=== PATIENT | male | born 1985 ===

== ENCOUNTER 2022-05-09 13:35 | Inpatient (IN) | payer MEDICARE, MEDICAID ==
[2022-05-09] MEDS ORDERED: ACETAMINOPHEN TAB 325 MG TAB PO PRN (13:46)
[2022-05-09] MEDS ORDERED: LORazepam 1 MG TAB PO PRN (13:46)
[2022-05-09] MEDS ORDERED: HALOPERIDOL LACTATE 5 MG/ML 1 ML VIAL IM PRN (13:46)
[2022-05-09] MEDS ORDERED: MAG HYDROX/AL HYDROX/SIMETH 355 ML BOTTLE PO PRN (13:46)
[2022-05-09] MEDS ORDERED: MAGNESIUM HYDROXIDE 2,400 MG/10 ML CUP PO PRN (13:46)
[2022-05-09] MEDS ORDERED: LORazepam 2 MG/ML INJ IM PRN (13:48)
[2022-05-09] MEDS ORDERED: haloperidoL 5 MG TAB PO PRN (13:48)
[2022-05-09] MEDS: carvediloL 12.5 MG TAB PO SCH (16:57)
[2022-05-09 19:59] LABS: Glucose,Whole Blood 145 mg/dL (70-110)
[2022-05-09] MEDS: SULFAMETHOX-TMP 800-160MG 1 EACH TAB PO SCH (20:18)
[2022-05-10 08:40] LABS: Glucose,Whole Blood 124 mg/dL (70-110)
[2022-05-10] MEDS ORDERED: SERTRALINE 100 MG TAB PO SCH (09:00)
[2022-05-10] MEDS: ARIPiprazole 10 MG TAB PO SCH (09:55)
[2022-05-10] MEDS: SULFAMETHOX-TMP 800-160MG 1 EACH TAB PO SCH ×2 (09:55→21:12)
[2022-05-10] MEDS: carvediloL 12.5 MG TAB PO SCH ×3 (09:55→21:33)
[2022-05-10] MEDS ORDERED: ARIPiprazole IM SYRINGE 400 MG (NO CHARGE) PHARMACY STOCK IM ONE (12:00)
--- NOTE | 2022-05-10 13:16 | P.HP ---
Psychiatric H&P - . H&P Date: 05/10/22 History & Physical: Allergies Allergy/AdvReac Type Severity Reaction Status Date / Time No Known Allergies Allergy Verified 05/09/22 13:45 Vital Signs Temp 97.4 F L 05/09/22 14:56 Pulse 111 H 05/09/22 16:59 Resp 16 05/09/22 14:56 BP 132/86 05/09/22 16:59 Pulse Ox 97 05/09/22 14:56 FiO2 Intake & Output 05/09/22 05/10/22 05/10/22 18:59 06:59 18:59 Weight 90.718 kg Laboratory Last Values POC Glucose (mg/dL) 124 mg/dL (70-110) H 05/10/22 08:39 POC Glu Mock Up Maker ID Janee Jackman 05/10/22 08:39 Triglycerides Cancelled 05/10/22 06:34 Cholesterol Cancelled 05/10/22 06:34 LDL Cholesterol Direct Cancelled 05/10/22 06:34 LDL Cholesterol, Calc Cancelled 05/10/22 06:34 VLDL Cholesterol, Calc Cancelled 05/10/22 06:34 HDL Cholesterol Cancelled 05/10/22 06:34 Cholesterol/HDL Ratio Cancelled 05/10/22 06:34 TSH 3.870 mIU/L (0.465-4.680) 05/10/22 06:34 05/10/22 13:15 IDENTIFYING DATA: Patient is a 36 year old male with a significant history of developmental disability and schizophrenia who presents to our hospital from [place] for acute change in behaviors over the past week. HPI: Patient presented to the hospital on 05/09/2022, brought to the emergency department from [place] under petition and certification for acute change in behaviors. The petition was filled out by the patient's case resource manager reported "Enio is soiling himself and not willing to take medications. He is acting out of character or not willing to go in for assessment. He is claiming 'I am not who you think I am.'" The patient was also noted to be incontinent. 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 This is also confirmed by a staff member at [facility]. When evaluated by this provider, the patient is minimal and conversation however is denying any suicidal or homicidal ideation, intention, and/or plan. Not reporting any auditory or visual hallucinations. He is denying any paranoia or other delusions. The patient has been adherent with his medication is not endorsing any significant side effects. He signed voluntarily onto the psychiatric unit. The patient has been noted by staff to be minimally participating in milieu and individual activities. He has not been eating much. PAST PSYCHIATRIC HISTORY: Patient has a previous diagnosis of developmental disability and schizophrenia. Information was provided by the patient's case resource manager reports that prior to his current regimen, the patient was only on a regimen of Zoloft and Klonopin. The patient has been at least one prior inpatient psychiatric hospitalization. He is currently open with [facility]. No reported previous suicide attempts. PMH: HTN , DM ALLERGIES: NO KNOWN DRUG ALLERGIES CHEMICAL DEPENDENCY HISTORY: No reported substance abuse history FAMILY PSYCHIATRIC/SUBSTANCE USE HISTORY: Unable to obtain SOCIAL HISTORY: Patient is his own guardian. He currently resides at the [facility]. 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 He is single, never , and has no children. MENTAL STATUS EXAM: General Appearance: Patient appears to be stated age is alert, directable, and attempts to cooperate. Patient appears to have slightly disheveled hygiene and grooming. Behavior: Patient displays psychomotor slowing. Speech: Patient's speech is nonspontaneous, minimal, monotone, low in volume. Mood/Affect: Patient reports their mood is "not good," affect is flat. Suicidality/Homicidality: Patient denies any suicidal or homicidal ideation. Perceptions: Patient denies any visual hallucinations and denies any auditory hallucinations Though content/process: There is no evidence of any delusional thought content and thought process is linear and goal-directed. Memory and concentration: AOX3, grossly intact for the purposes of this session. Can spell "WORLD" backwards Judgment and insight: Poor at this time STRENGTHS/WEAKNESSES: Strength is that the patient is open with services and has stable housing. Weakness is that the patient has severe mental illness and ongoing infection. INTELLECT: Below average IMPRESSIONS: Schizophrenia Major depressive disorder -Suspect that the patient is experiencing a depressive episode with symptoms of elevated anxiety, low energy, withdrawn affect, as well as regressing behaviors such as incontinence. PLAN: -Patient is admitted under voluntary status to MHU for stabilization of psychiatric symptoms and safety. Patient signed adult voluntary form and medication consent and is placed in patient's chart. -Medications : Will start patient on Abilify maintena 400 mg IM will be administered today. Continue Abilfiy 10 mg daily for mood stabilization Decrease Zoloft to 150 mg by mouth daily for depression/anxiety Start Remeron 7.5 mg by mouth at bedtime for depression/appetite stimulation -Ativan Haldol PRN for agitation/aggression -Patient was informed of the risks, benefits and side effects of the medication and patient verbally consented to taking the medications. Patient signed med consent form and was placed in chart. -Internal Medicine consult to perform medical evaluation and physical. -SW on board for discharge planning. Encourage patient to participate in groups to work on coping skills.
[2022-05-10 14:29] LABS: Glucose,Whole Blood 156 mg/dL (70-110)
[2022-05-10 17:53] LABS: Glucose,Whole Blood 88 mg/dL (70-110)
[2022-05-10] MEDS ORDERED: MIRTAZAPINE 15 MG TAB PO SCH (21:00)
--- NOTE | 2022-05-11 00:04 | P.PN ---
Progress Note - Text Progress Note Date: 05/11/22 severe developmental delay , challenging to get meaningful medical history at this time, no medical concerns per RN
[2022-05-11 07:58] LABS: Glucose,Whole Blood 85 mg/dL (70-110)
[2022-05-11] MEDS: ARIPiprazole 10 MG TAB PO SCH (08:59)
[2022-05-11] MEDS: SULFAMETHOX-TMP 800-160MG 1 EACH TAB PO SCH ×2 (08:59→20:59)
[2022-05-11] MEDS: carvediloL 12.5 MG TAB PO SCH ×2 (08:59→17:29)
[2022-05-11] MEDS: SERTRALINE 50 MG TAB PO SCH (08:59)
--- NOTE | 2022-05-11 10:19 | P.PN ---
Progress Note - Text Progress Note Date: 05/11/22 Interval History: Patient was seen resting in bed and was directable and agreeable to speak with database report writer in his room., The patient is not reporting any suicidal or homicidal ideation, intention, and/or plan. He is not reporting any auditory or visual hallucinations. He reports no paranoia or other delusions. He has been adherent with his medication and is not endorsing any significant side effects. He remains minimal and conversation and does not wish to get out of bed. He does report that he was able to get up and eat breakfast. He remains primarily isolative to himself in his room. The patient is unable to identify any acute stressors to this provider. Mental Status Exam: General Appearance: Patient appears to be stated age is alert, directable, and cooperative. Behavior: Displays psychomotor slowing. Eye contact is poor Speech: Patient's speech is nonspontaneous, minimal, monotone, low in volume. Mood/Affect: Patient reports their mood is "not good," affect is flat. Suicidality/Homicidality: Patient denies any suicidal or homicidal ideation. Perceptions: Patient denies any visual hallucinations and denies any auditory hallucinations Though content/process: There is no evidence of any delusional thought content and thought process is linear and goal-directed. Memory and concentration: AOX3, grossly intact for the purposes of this session. Judgment and insight: Poor at this time Vital Signs Temp 97.5 F L 05/11/22 09:04 Pulse 95 05/11/22 09:04 Resp 16 05/11/22 06:37 BP 119/68 05/11/22 09:04 Pulse Ox 99 05/11/22 06:37 FiO2 Allergies Allergy/AdvReac Type Severity Reaction Status Date / Time No Known Allergies Allergy Verified 05/09/22 13:45 Assessment Schizophrenia Major depressive disorder Plan: -Patient continues to meet criteria for inpatient psychiatric admission for symptom stabilization and safety. Patient has signed adult voluntary form and medication consent and was placed in patient's chart. -Medications: -Medications : Will start patient on Abilify maintena 400 mg IM will be administered today. Continue Abilfiy 10 mg daily for mood stabilization Continue Zoloft 150 mg by mouth daily for depression/anxiety Increase Remeron to 15 mg by mouth at bedtime for depression/appetite stimulation -When necessary Ativan and Haldol for agitation/aggression. -NRT - nicotine patch -SW on board for discharge planning. Encouraged the patient to participate in milieu.
[2022-05-11 15:29] LABS: Chol/HDL Ratio 7.43 Ratio; LDL Cholesterol,Calculated 147.6 mg/dL (0.0-131.0)
[2022-05-11 17:41] LABS: Glucose,Whole Blood 84 mg/dL (70-110)
[2022-05-11 20:03] LABS: Glucose,Whole Blood 142 mg/dL (70-110)
[2022-05-11] MEDS: MIRTAZAPINE 15 MG TAB PO SCH (20:59)
[2022-05-12] MEDS: SULFAMETHOX-TMP 800-160MG 1 EACH TAB PO SCH ×2 (08:41→20:23)
[2022-05-12] MEDS: carvediloL 12.5 MG TAB PO SCH ×2 (08:42→17:35)
[2022-05-12] MEDS: ARIPiprazole 10 MG TAB PO SCH (08:42)
[2022-05-12] MEDS: SERTRALINE 50 MG TAB PO SCH (09:08)
--- NOTE | 2022-05-12 10:27 | P.PN ---
Progress Note - Text Progress Note Date: 05/12/22 Interval History: Patient was seen resting in bed and was directable and agreeable to speak with policy writer sales in his room. The patient is currently denying any suicidal or homicidal ideation, intention, and/or plan. He is not reporting any auditory or visual hallucinations. The patient was discovered in his room with 10 mg of Abilify in pill form next to him. When inquired about, the patient reports that he has not been taking his oral medications. When asked why not, the patient is unable to provide any clear answer other than "I do not want to." He expresses no other concerns to this provider. Mental Status Exam: General Appearance: Patient appears to be stated age is alert, directable, and cooperative. Behavior: Displays psychomotor slowing. Eye contact is poor Speech: Patient's speech is nonspontaneous, minimal, monotone, low in volume. Mood/Affect: Patient reports their mood is "not good," affect is flat. Suicidality/Homicidality: Patient denies any suicidal or homicidal ideation. Perceptions: Patient denies any visual hallucinations and denies any auditory hallucinations Though content/process: There is no evidence of any delusional thought content and thought process is linear and goal-directed. Memory and concentration: AOX3, grossly intact for the purposes of this session. Judgment and insight: Poor at this time Vital Signs Temp 97.7 F 05/12/22 06:51 Pulse 88 05/12/22 06:51 Resp 16 05/12/22 06:51 BP 121/79 05/12/22 06:51 Pulse Ox 99 05/11/22 06:37 FiO2 Laboratory Results - Last 24 Hours 05/11/22 05/11/22 05/11/22 08:07 08:07 17:38 POC Glucose (mg/dL) 84 POC Glu Head Lineman ID Chana Traore [address] Glu mg/dL 151 Hemoglobin A1c 6.9 H Triglycerides 227.00 H Cholesterol 223.00 H LDL Cholesterol, Calc 147.6 H VLDL Cholesterol, Calc 45.40 H HDL Cholesterol 30.00 L Cholesterol/HDL Ratio 7.43 05/11/22 20:01 POC Glucose (mg/dL) 142 H POC Glu Head Lineman ID Ameena Garzon [address] Glu mg/dL Hemoglobin A1c Triglycerides Cholesterol LDL Cholesterol, Calc VLDL Cholesterol, Calc HDL Cholesterol Cholesterol/HDL Ratio Assessment Schizophrenia Major depressive disorder Plan: -Patient continues to meet criteria for inpatient psychiatric admission for symptom stabilization and safety. Patient has signed adult voluntary form and medication consent and was placed in patient's chart. -Medications: -Medications : The patient has been nonadherent with his medications. Abilify maintena 400 mg IM was administered on 05/10/2022. Continue Abilfiy 10 mg daily for mood stabilization Discontinue Zoloft and start Prozac 30 mg oral solution daily. Continue Remeron 15 mg at bedtime for depression/appetite stimulation -When necessary Ativan and Haldol for agitation/aggression. -NRT - nicotine patch -SW on board for discharge planning. Encouraged the patient to participate in milieu.
[2022-05-12 20:06] LABS: Glucose,Whole Blood 83 mg/dL (70-110)
[2022-05-12] MEDS: MIRTAZAPINE 15 MG TAB PO SCH (20:23)
[2022-05-13 08:29] LABS: Glucose,Whole Blood 107 mg/dL (70-110)
[2022-05-13] MEDS: FLUoxetine ORAL SOLN 20 MG/5 ML CUP PO SCH (08:34)
[2022-05-13] MEDS: SULFAMETHOX-TMP 800-160MG 1 EACH TAB PO SCH ×2 (08:34→19:44)
[2022-05-13] MEDS: carvediloL 12.5 MG TAB PO SCH ×2 (08:34→17:20)
[2022-05-13] MEDS: ARIPiprazole 10 MG TAB PO SCH (08:35)
[2022-05-13 13:14] LABS: Glucose,Whole Blood 100 mg/dL (70-110)
[2022-05-13 17:43] LABS: Glucose,Whole Blood 103 mg/dL (70-110)
--- NOTE | 2022-05-13 18:30 | P.PN ---
Progress Note - Text Progress Note Date: 05/13/22 Interval history: Patient was seen isolating to his room and resting in bed. He was agreeable to speak with specification writer but was passively engaged in assessment with concrete thoughts. He appears disheveled, withdrawn, and appears to minimize his symptoms. He reports his mood is "alright" and denies any concerns. At this time, patient denies any suicidal or homicidal ideation, intent or plan. Denies any auditory or visual hallucinations. Patient denies any side effects from the medications and has been compliant with meds. He did not attend group today. Mental status exam: General Appearance: Patient appears to be stated age, appears disheveled, laying in bed with hospital gown Behavior: No agitated behavior. He is withdrawn and isolative, is passively engaged in assessment. Speech: Patient's speech is fluent and non-pressured. Mood/Affect: Mood is improving mildly, affect is congruent and blunted. Suicidality/Homicidality: Patient denies having any suicidal or homicidal ideation intent or plan. Perceptions: Patient denies any auditory or visual hallucinations. Though content/process: There is no evidence of any delusional thought content. Thought process is concrete with brief/minimal responses. Memory and concentration: AOX3, grossly intact for the purposes of this session Judgment and insight: improving mildly Assessment/Plan: Continue with current diagnosis. Patient continues to meet criteria for inpatient psychiatric admission for symptom stabilization and safety. Patient will be maintained on current psychotropic medication regimen. He was started on Prozac oral solution 30 mg daily starting this morning. Monitor for medication compliance and for any psychotropic medication side effects. Will continue to monitor ongoing response to treatment. Encouraged participation in milieu.
[2022-05-13 19:43] LABS: Glucose,Whole Blood 122 mg/dL (70-110)
[2022-05-13] MEDS: MIRTAZAPINE 15 MG TAB PO SCH (19:44)
--- NOTE | 2022-05-14 00:07 | P.CONS ---
History of Present Illness - Reason for Consult Consult date: 05/14/22 - History of Present Illness The patient is a 36-year-old male with a PMH of type II DM, hypertension, developmental delay and schizophrenia who was transferred from [facility] where the patient had presented for strange behavior. The patient was admitted to the mental health unit where he was seen and evaluated. He reported having long-standing history of auditory hallucinations. He denied any additional complaints at the time of interview. He denied experiencing chest discomfort, shortness of breath, fever, chills, cough, nausea, vomiting, abdominal pain, diarrhea. He denied using tobacco, illicit substances, or alcohol. Review of systems: Pertinent positives and negatives as discussed in HPI, a complete review of systems was performed and all other systems are negative. Physical examination: General: non toxic, no distress, appears at stated age, overweight Derm: no unusual rashes/lesions, no unusual ecchymoses, warm, dry Head: atraumatic, normocephalic, symmetric Eyes: EOMI, no lid lag, anicteric sclera ENT: Nose and ears atraumatic, no thrush, no pharyngeal erythema Neck: trachea midline, supple Mouth: no lip lesion, mucus membranes moist Cardiovascular: S1S2 reg, no murmur, no edema Lungs: CTA bilateral, no rhonchi, no rales , no accessory muscle use Abdominal: soft, nontender to palpation, no guarding Ext: no gross muscle atrophy, no contractures, Neuro: No gross focal neuro deficits noted Psych: Alert, oriented, appropriate affect Assessment/plan Type II DM -Although patient has insulin in his his home medication list, the patient's blood glucose levels have been within normal limits without use of insulin -Continue to monitor at this time Psychosis -As per psychiatry Thank you for allowing us to participate in the care of this patient. We will follow peripherally. Do not hesitate to contact us with questions. Someone can be reached from the [facility] hospitalist group at all hours of the day at [phone]. Past Medical History - Past Family History Father Family Medical History: Unable to Obtain (Unable to recall as patient has developmental delay) Medications and Allergies Home Medications Medication Instructions Recorded Confirmed Type ARIPiprazole 10 mg PO DAILY 05/09/22 05/09/22 History ARIPiprazole IM SYRINGE [Abilify 400 mg IM Q28D 05/09/22 05/09/22 History Maintena Syringe] Insulin Aspart [NovoLOG Flexpen] 15 units SQ AC-TID 05/09/22 05/09/22 History Insulin Aspart [NovoLOG Flexpen] See Protocol SQ DIRECTED 05/09/22 05/09/22 History Insulin Detemir [Levemir Flextouch 20 units SQ BID 05/09/22 05/09/22 History Pen] Sertraline [Zoloft] 200 mg PO DAILY 05/09/22 05/09/22 History carvediloL 25 mg PO BID 05/09/22 05/09/22 History Allergies Allergy/AdvReac Type Severity Reaction Status Date / Time No Known Allergies Allergy Verified 05/09/22 13:45 Physical Exam Vitals: Vital Signs Temp Pulse Resp BP Pulse Ox 05/13/22 17:15 92 109/65 05/13/22 08:38 98.2 F 95 16 112/68 95 Intake and Output 05/13/22 05/13/22 05/14/22 14:59 22:59 06:59 Intake Total 1120 120 Balance 1120 120 Intake: Oral 1120 120 Results Labs: Abnormal Lab Results - Last 24 Hours (Table) 05/13/22 Range/Units 19:40 POC Glucose (mg/dL) 122 H (70-110) mg/dL
[2022-05-14 07:46] LABS: Glucose,Whole Blood 106 mg/dL (70-110)
[2022-05-14] MEDS: ARIPiprazole 10 MG TAB PO SCH (08:04)
[2022-05-14] MEDS: carvediloL 12.5 MG TAB PO SCH ×2 (08:04→17:28)
[2022-05-14] MEDS: SULFAMETHOX-TMP 800-160MG 1 EACH TAB PO SCH ×2 (08:04→20:38)
[2022-05-14] MEDS: FLUoxetine ORAL SOLN 20 MG/5 ML CUP PO SCH (08:06)
[2022-05-14 12:48] LABS: Glucose,Whole Blood 94 mg/dL (70-110)
--- NOTE | 2022-05-14 15:03 | P.PN ---
Progress Note - Text Progress Note Date: 05/14/22 Interval history: Patient was seen isolating to his room again today and resting in bed. He was agreeable to speak with mortgage loan underwriter but was passively engaged in assessment with concrete thoughts. He appears disheveled, withdrawn, and appears to minimize his symptoms. He reports his mood is "fine" and denies any concerns, but objectively he appears depressed, is malodorous and disheveled. At this time, patient denies any suicidal or homicidal ideation, intent or plan. Denies any auditory or visual hallucinations. Patient denies any side effects from the medications and has been compliant with meds. He did not attend groups again today and continues to isolate to his room except for meals. Mental status exam: General Appearance: Patient appears to be stated age, appears disheveled, malodorous, laying in bed with hospital gown Behavior: No agitated behavior. He is withdrawn and isolative, is passively engaged in assessment. Speech: Patient's speech is fluent and non-pressured. Mood/Affect: Mood is "fine", affect is depressed and blunted. Suicidality/Homicidality: Patient denies having any suicidal or homicidal ideation intent or plan. Perceptions: Patient denies any auditory or visual hallucinations. Though content/process: There is no evidence of any delusional thought content. Thought process is concrete with brief/minimal responses. Memory and concentration: AOX3, grossly intact for the purposes of this session Judgment and insight: improving mildly Assessment/Plan: Continue with current diagnosis. Patient continues to meet criteria for inpatient psychiatric admission for symptom stabilization and safety. Patient will be maintained on current psychotropic medication regimen. Increase Prozac oral solution to 40 mg daily starting tomorrow morning for depression. Monitor for medication compliance and for any psychotropic medication side effec ts. Will continue to monitor ongoing response to treatment. Encouraged participation in milieu.
[2022-05-14 17:40] LABS: Glucose,Whole Blood 85 mg/dL (70-110)
[2022-05-14 20:09] LABS: Glucose,Whole Blood 124 mg/dL (70-110)
[2022-05-14] MEDS: MIRTAZAPINE 15 MG TAB PO SCH (20:38)
[2022-05-15 07:01] VITALS: RESP 14
[2022-05-15 07:56] LABS: Glucose,Whole Blood 91 mg/dL (70-110)
[2022-05-15] MEDS: FLUoxetine ORAL SOLN 20 MG/5 ML CUP PO SCH (08:39)
[2022-05-15] MEDS: SULFAMETHOX-TMP 800-160MG 1 EACH TAB PO SCH ×2 (08:39→20:48)
[2022-05-15] MEDS: carvediloL 12.5 MG TAB PO SCH ×2 (08:39→17:30)
[2022-05-15] MEDS: ARIPiprazole 10 MG TAB PO SCH (08:39)
--- NOTE | 2022-05-15 10:11 | P.PN ---
Progress Note - Text Progress Note Date: 05/15/22 Interval history: Patient was seen isolating to his room again today and resting in bed. Patient reports that he is feeling good. He is currently denying any suicidal or homicidal ideation, intention, and/or plan. He is not reporting any auditory or visual hallucinations. He denies any paranoia or other delusions. He is noted to be more spontaneous today. He states that he is adherent with his medications and is not reporting any significant side effects. When discussing his favorite books, the patient is able to comment that his favorite series as the [employer] series. He does report that he has been eating his meals and states that he has been sleeping well. He reports that no one typically helps him shower and that he showered yesterday. He denies any medical issues or concerns. Mental status exam: General Appearance: Patient appears to be stated age, appears disheveled, laying in bed with hospital gown Behavior: No agitated behavior. He is withdrawn and passively engaged in the assessment. Speech: Patient's speech is fluent and non-pressured. Nonspontaneous but more verbal today. Mood/Affect: Mood is "fine", affect is blunted but increased range today. Suicidality/Homicidality: Patient denies having any suicidal or homicidal ideation intent or plan. Perceptions: Patient denies any auditory or visual hallucinations. Though content/process: There is no evidence of any delusional thought content. Thought process is concrete with brief/minimal responses. Memory and concentration: AOX3, grossly intact for the purposes of this session Judgment and insight: improving mildly Vital Signs Temp 98.2 F 05/15/22 08:44 Pulse 83 05/15/22 08:44 Resp 14 05/15/22 06:50 BP 124/59 05/15/22 08:44 Pulse Ox 95 05/13/22 08:38 FiO2 Intake & Output 05/14/22 05/15/22 05/15/22 18:59 06:59 18:59 Intake Total 840 Balance 840 Intake: Oral 840 Laboratory Results - Last 24 Hours 05/14/22 05/14/22 05/14/22 12:45 17:39 20:05 POC Glucose (mg/dL) 94 85 124 H POC Glu Vendor Management Associate Mary Butler Ellie Keyworth, Toni 05/15/22 07:54 POC Glucose (mg/dL) 91 POC Glu Vendor Management Associate ID Chana Traore Assessment Schizophrenia Major depressive disorder Plan: -Patient continues to meet criteria for inpatient psychiatric admission for symptom stabilization and safety. Patient has signed adult voluntary form and medication consent and was placed in patient's chart. -Medications: -Medications : Abilify maintena 400 mg IM was administered on 05/10/2022. Continue Abilfiy 10 mg daily for mood stabilization Continue Prozac oral solution 40 mg daily for depression Continue Remeron 15 mg at bedtime for depression/appetite stimulation -When necessary Ativan and Haldol for agitation/aggression. -NRT - nicotine patch -SW on board for discharge planning. Encouraged the patient to participate in milieu.
[2022-05-15 13:04] LABS: Glucose,Whole Blood 94 mg/dL (70-110)
[2022-05-15] MEDS: MIRTAZAPINE 15 MG TAB PO SCH (20:48)
[2022-05-16 06:52] VITALS: BP 103/57; PULSE 72; TEMP 97.6
[2022-05-16 07:50] LABS: Glucose,Whole Blood 93 mg/dL (70-110)
[2022-05-16] MEDS: carvediloL 12.5 MG TAB PO SCH (08:47)
[2022-05-16] MEDS: SULFAMETHOX-TMP 800-160MG 1 EACH TAB PO SCH (08:47)
[2022-05-16] MEDS: FLUoxetine ORAL SOLN 20 MG/5 ML CUP PO SCH (08:47)
[2022-05-16] MEDS: ARIPiprazole 10 MG TAB PO SCH (08:48)
[2022-05-16 12:50] LABS: Glucose,Whole Blood 99 mg/dL (70-110)
--- NOTE | 2022-05-16 13:05 | P.DS ---
Providers Date of admission: 05/09/22 14:38 Expected date of discharge: 05/16/22 Attending physician: Jian Andres MD Consults: 05/09/22 13:46 Consult Physician Routine Consulting Provider: May Henry Consult Reason/Comments: H&P and medical Do you want consulting provider notified?: Yes Primary care physician: Stated None - Discharge Diagnosis(es) (1) Major depressive disorder Current Visit: Yes Status: Acute Priority: High (2) Schizophrenia Current Visit: Yes Status: Acute Priority: Medium (3) Intellectual disability Current Visit: Yes Status: Chronic Priority: Medium Hospital Course: Admission HPI: Patient is a 36 year old male with a significant history of developmental disability and schizophrenia who presents to our hospital from [place] ED for acute change in behaviors over the past week. Patient presented to the hospital on 05/09/2022, brought to the emergency department from [place] ED under petition and certification for acute change in behaviors. The petition was filled out by the patient's case planner reported "Enio is soiling himself and not willing to take medications. He is acting out of character or not willing to go in for assessment. He is claiming 'I am not who you think I am.'" The patient was also noted to be incontinent. 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 This is also confirmed by a staff member at [facility]. When evaluated by this provider, the patient is minimal and conversation however is denying any suicidal or homicidal ideation, intention, and/or plan. Not reporting any auditory or visual hallucinations. He is denying any paranoia or other delusions. The patient has been adherent with his medication is not endorsing any significant side effects. He signed voluntarily onto the psychiatric unit. The patient has been noted by staff to be minimally participating in milieu and individual activities. He has not been eating much. Patient has a previous diagnosis of developmental disability and schizophrenia. Information was provided by the patient's case planner reports that prior to his current regimen, the patient was only on a regimen of Zoloft and Klonopin. The patient has been at least one prior inpatient psychiatric hospitalization. He is currently open with [facility]. No reported previous suicide attempts. Hospital course: Upon admission to the unit patient was initially presenting as withdrawn, disheveled, and minimal conversation. Patient was however directable and agreeable to commence treatment. Patient got along well with other patients on the unit and followed unit protocol. Patient was compliant with the medications and denied any side effects throughout hospital course. Patient was started on his Abilify maintena and remeron was added to his regimen. Zoloft was continued however, over the course of the hospitals addition, the patient displayed minimal improvement with this regimen. It was later determined that the patient was nonadherent with his medications and therefore he was switched from Zoloft to liquid Prozac. On this regimen, the patient displayed significant improvement in regards to his spontaneity and his interactions with staff and peers. He became more future and goal oriented and was more spontaneous and taking care of his hygiene and grooming. The patient also developed a better appetite and was able to have full conversations with this provider as compared to before. On the day of discharge, the patient is not reporting any suicidal or homicidal ideation, intention, and/or plan. He is not reporting any auditory or visual hallucinations. He is denying any paranoia or other delusions. He has been adherent with his medication is not reporting any significant side effects. He denies any access to firearms or other weapons. He remains future and goal oriented. The patient was counseled length and the importance of medication adherence and appropriate outpatient follow-up. Furthermore, the patient was counseled on abstaining from all substances including alcohol and marijuana. Prior to discharge, a meeting was arranged by social work case manager to answer any questions and ensure safety. He reports no medical issues or concerns. He denies any chest pain, SOB, or palpitations. Mental status exam: General Appearance: Patient appears to be stated age is alert, pleasant, and cooperative. Patient is in no acute distress and has improved hygiene and grooming Behavior: Patient is calmly seated without any agitated behavior. Speech: Patient's speech is fluent and nonpressured. Mood/Affect: Patient reports their mood is "doing okay", affect is congruent and constricted however increased range compared to before Suicidality/Homicidality: Patient denies having any suicidal or homicidal ideation intent or plan. Perceptions: Patient denies any auditory or visual hallucinations. Though content/process: There is no evidence of any delusional thought content and thought process is linear and goal-directed. Patient is future oriented Memory and concentration: AOX3, grossly intact for the purposes of this session. Can spell "WORLD" backwards correctly. Judgment and insight: Improved with guarded prognosis Impression: Schizophrenia Major depressive disorder Plan: -Continue with discharge today as patient has improved and stabilized psychiatrically and is not currently an imminent threat to himself and/or others. Patient will remain at chronically elevated risk due to the severity of his mental illness -Continue medications: Continue on Abilify 10 mg by mouth for 15 days Abilify maintena 400 mg IM was administered on 05/10/2022. Patient receives IM every 28D. Remeron 15 mg by mouth at bedtime for depression Prozac 40 mg by mouth at bedtime for depression/anxiety -Patient was counseled on the need for medication compliance and appropriate follow-up at mental health and also primary care for medical issues. Patient verbalized understanding and agreed. -Social work to arrange for and conduct family meeting to ensure safety upon discharge and answer any questions/concerns. Social work also to arrange for patients follow up appointments with [facility] for psychiatric care along with follow up with primary care provider. -Patient counseled on abstaining from recreational drugs and marijuana and alcohol. Was informed/educated on the adverse effects on their physical and mental health. Patient verbally agreed and understood. -Patient was instructed to return to the hospital or seek immediate medical care if their psychiatric or medical symptoms do worsen or reoccur. -Psychoeducation and supportive therapy provided to patient. Risks and benefits of pharmacological treatment versus the risks and benefits of nontreatment weight and discussed. Informed consent discussion held. Common side effects of psychotropics discussed such as, but not limited to headache, GI disturbance, sexual dysfunction, movement disorders, sedation, and orthostatic hypotension. Life threatening and blackbox warnings of prescribed medications also discussed. Potential risks of operating a vehicle or heavy machinery discussed with patient at length. Advised on importance of compliance and a reliable and responsible manner. Patient advised to review FDA consumer labeling of all medications prior to taking. Patient verbalized understanding of potential risks, and agrees with current treatment plan. Patient advised to medically c ontact physician/emergency personnel if any acute changes in condition occur. Vital Signs Temp 97.6 F 05/16/22 06:51 Pulse 72 05/16/22 06:51 Resp 14 05/16/22 06:51 BP 103/57 05/16/22 06:51 Pulse Ox 95 05/13/22 08:38 FiO2 Laboratory Results POC Glucose (mg/dL) 99 mg/dL (70-110) 05/16/22 12:47 POC Glu [employer] Chana Meyer 05/16/22 12:[address] Glu mg/dL 151 05/11/22 08:07 Hemoglobin A1c 6.9 % (0.0-6.0) H 05/11/22 08:07 Triglycerides 227.00 mg/dL (0.00-149.00) H 05/11/22 08:07 Cholesterol 223.00 mg/dL (0.00-200.00) H 05/11/22 08:07 LDL Cholesterol Direct Cancelled 05/10/22 06:34 LDL Cholesterol, Calc 147.6 mg/dL (0.0-131.0) H 05/11/22 08:07 VLDL Cholesterol, Calc 45.40 mg/dL (5.00-40.00) H 05/11/22 08:07 HDL Cholesterol 30.00 mg/dL (40.00-60.00) L 05/11/22 08:07 Cholesterol/HDL Ratio 7.43 Ratio 05/11/22 08:07 TSH 3.870 mIU/L (0.465-4.680) 05/10/22 06:34 Allergies Allergy/AdvReac Type Severity Reaction Status Date / Time No Known Allergies Allergy Verified 05/09/22 13:45 Patient Condition at Discharge: Stable Plan - Discharge Summary New Discharge Prescriptions: New ARIPiprazole [Abilify] 10 mg PO DAILY 15 Days tab FLUoxetine ORAL SOLN [PROzac ORAL SOLN] 40 mg PO DAILY 30 Days ml Mirtazapine [Remeron] 15 mg PO HS 30 Days tab Continue Insulin Detemir [Levemir Flextouch Pen] 20 units SQ BID ARIPiprazole IM SYRINGE [Abilify Maintena Syringe] 400 mg IM Q28D #0 Insulin Aspart [NovoLOG Flexpen] 15 units SQ AC-TID carvediloL 25 mg PO BID Insulin Aspart [NovoLOG Flexpen] See Protocol SQ DIRECTED Discontinued ARIPiprazole 10 mg PO DAILY Sertraline [Zoloft] 200 mg PO DAILY Discharge Medication List Insulin Aspart [NovoLOG Flexpen] 15 units SQ AC-TID 05/09/22 [History] Insulin Aspart [NovoLOG Flexpen] See Protocol SQ DIRECTED 05/09/22 [History] Insulin Detemir [Levemir Flextouch Pen] 20 units SQ BID 05/09/22 [History] carvediloL 25 mg PO BID 05/09/22 [History] ARIPiprazole IM SYRINGE [Abilify Maintena Syringe] 400 mg IM Q28D #0 05/16/22 [Rx] ARIPiprazole [Abilify] 10 mg PO DAILY 15 Days tab 05/16/22 [Rx] FLUoxetine ORAL SOLN [PROzac ORAL SOLN] 40 mg PO DAILY 30 Days ml 05/16/22 [Rx] Mirtazapine [Remeron] 15 mg PO HS 30 Days tab 05/16/22 [Rx] Follow up Appointment(s)/Referral(s): [facility] [Outside] - 05/18/22 10:00 am (05-18-22 at 10am at [facility]/ 06-13-22 at 5:30pm Dr. Andrade at [facility]) [facility] [NON-STAFF] - 1 Week Patient Instructions/Handouts: Depression (DC), Schizophrenia (DC) Activity/Diet/Wound Care/Special Instructions: Avoid the use of street drugs and alcohol. Take all prescriptions as prescribed. When you are in need of refills on your medications, please contact your medical provider and/or outpatient psychiatrist to have this done. Please go to scheduled outpatient appointment for aftercare treatment. If symptoms return or become worse, call the crisis line at and/or go to the nearest emergency room for evaluation Discharge Disposition: HOME SELF-CARE
== END 2022-05-16 18:10 | disposition home or self-care (01) | DRG 881 ==
LOC: 3MHU 14:38
PROVIDERS: ADMIT Psychiatry & Neurology Psychiatry; ATTEND Psychiatry & Neurology Psychiatry
DX: F32.9 Major depressive disorder, single episode, unspecified (principal); E11.9 Type 2 diabetes mellitus without complications; F20.9 Schizophrenia, unspecified; I10 Essential (primary) hypertension; F79 Unspecified intellectual disabilities; E66.3 Overweight; R62.50 Unspecified lack of expected normal physiological development in childhood; R32 Unspecified urinary incontinence; Z68.28 Body mass index [BMI] 28.0-28.9, adult; Z79.899 Other long term (current) drug therapy; Z79.4 Long term (current) use of insulin
CPT/HCPCS: 80061; 83036; 84443

== ENCOUNTER 2022-05-24 03:04 | Inpatient (IN) | payer MEDICARE, MEDICAID ==
[2022-05-24] MEDS ORDERED: LORazepam 1 MG TAB PO PRN (03:33)
[2022-05-24] MEDS ORDERED: MAGNESIUM HYDROXIDE 2,400 MG/10 ML CUP PO PRN (03:33)
[2022-05-24] MEDS ORDERED: ACETAMINOPHEN TAB 325 MG TAB PO PRN (03:33)
[2022-05-24] MEDS ORDERED: HALOPERIDOL LACTATE 5 MG/ML 1 ML VIAL IM PRN (03:33)
[2022-05-24] MEDS ORDERED: MAG HYDROX/AL HYDROX/SIMETH 355 ML BOTTLE PO PRN (03:33)
[2022-05-24] MEDS ORDERED: haloperidoL 5 MG TAB PO PRN (03:38)
[2022-05-24] MEDS ORDERED: LORazepam 2 MG/ML INJ IM PRN (03:38)
[2022-05-24] MEDS ORDERED: FLUoxetine HCL 20 MG CAP PO SCH (09:00)
[2022-05-24] MEDS: ARIPiprazole 10 MG TAB PO SCH (09:41)
--- NOTE | 2022-05-24 11:17 | P.HP ---
Psychiatric H&P - . H&P Date: 05/24/22 History & Physical: Allergies Allergy/AdvReac Type Severity Reaction Status Date / Time No Known Allergies Allergy Verified 05/24/22 10:21 Vital Signs Temp 97.7 F 05/24/22 09:30 Pulse 84 05/24/22 09:30 Resp 18 05/24/22 09:30 BP 127/75 05/24/22 09:30 Pulse Ox 97 05/24/22 09:30 FiO2 Intake & Output 05/23/22 05/24/22 05/24/22 18:59 06:59 18:59 Weight 131.542 kg 88.5 kg 05/24/22 11:17 IDENTIFYING DATA: Patient is a 36-year-old male who presented to our hospital from [place] [facility] for increased apathy, rigidity, and catatonic behavior. HPI: Patient presented to the hospital on 05/24/2022, transferred from [facility] for increased apathy, rigidity, and catatonic behavior. The patient was assessed by [facility] on 05/23/22 and was recommended for psychiatric inpatient hospitalization. As for EPS nurse, the [facility] home was contacted and reported that the patient requested to return to the hospital a few days after being discharged from our unit on 05/16/2022.The patient was also reported to be treated at [facility] for catatonia. The patient presented with increased apathy and endorsed suicidal ideation and some bizarre delusional thoughts. He was subsequently admitted to our psychiatric unit. Upon evaluation on the unit, the patient is a limited historian. He is minimal in conversation but reports that he has been feeling depressed. He does not endorse any auditory or visual hallucinations. He reports no paranoia or other delusions to this provider. He does report low appetite and difficulty addressing his hygiene and grooming however attempts to illicit a more thorough response is met with one word answers. The patient is however agreeable to admission and medication adjustments. During his last admission, this provider contacted [facility] and they reported that the patient is highly functional at baseline. 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 PAST PSYCHIATRIC HISTORY: raquel has a previous diagnosis of developmental disability and schizophrenia. The patient was only on a regimen of Zoloft and Klonopin prior to initiating treatment on abilify maintena. He received abilify maintena 400 mg IM on 05/10/2022. The patient was most recently admitted to our unit in April 2022 and was discharged 2 weeks prior to this admission. He was transitioned to prozac and remeron from zoloft. He is currently open with [facility]. No reported previous suicide attempts. PMH: Hypertension, Diabetes Mellitus ALLERGIES: NKDA CHEMICAL DEPENDENCY HISTORY: Patient reports no alcohol, tobacco, marijuana, or illicit drug use. FAMILY PSYCHIATRIC/SUBSTANCE USE HISTORY: Unable to obtain. SOCIAL HISTORY: Patient is his own guardian. He currently resides at the [facility] home. 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 He is single, never , and has no children. MENTAL STATUS EXAM: General Appearance: Patient appears to be stated age is alert, directable, and attempts to cooperate. Patient appears to have poor hygiene and grooming. Behavior: Patient is lying down in bed with fair eye contact. Psychomotor retardation is evident. Patient blinks frequently. Speech: Patient's speech is nonspontaneous. Low volume, one-word replies. Mood/Affect: Patient reports their mood is depressed, affect is congruent and flat. Suicidality/Homicidality: Patient denies any suicidal or homicidal ideation. Perceptions: Patient denies any visual hallucinations and denies any auditory hallucinations Though content/process: There is no evidence of any delusional thought content and thought process is linear and goal-directed. Memory and concentration: AOX3, grossly intact for the purposes of this session. Judgment and insight: Fair STRENGTHS/WEAKNESSES: Strength is that the patient is open with services and has stable housing. Weakness is that the patient has severe mental illness and developmental delay. INTELLECT: Below average IMPRESSIONS: Major depressive disorder, recurrent, severe, with psychotic features. PLAN: -Patient is admitted under voluntary status to MHU for stabilization of psychiatric symptoms and safety. Patient signed adult voluntary form and medication consent and is placed in patient's chart. -Medications : Will start patient on Abilify 10 mg daily for mood augmentation. Abilify maintena 400 mg IM was last administered on 05/10/2022. Prozac 40 mg daily for depression Increase Remeron to 30 mg at bedtime for depression -Ativan and Haldol PRN for agitation/aggression -Patient was informed of the risks, benefits and side effects of the medication and patient verbally consented to taking the medications. Patient verbally agreed to medications. -Internal Medicine consult to perform medical evaluation and physical. -SW on board for discharge planning. Encourage patient to participate in groups to work on coping skills.
[2022-05-24] MEDS ORDERED: DEXTROSE 50% SYRINGE 50 ML IVP PRN ×2 (16:03)
--- NOTE | 2022-05-24 16:58 | P.HPMEDMHU ---
History of Present Illness H&P Date: 05/24/22 Chief Complaint: Transferred for catatonic behavior Patient is a 36-year-old male with a past medical history of diabetes, hypertension, schizophrenia, developmental delay who was transferred from [facility] for catatonic behavior. He is admitted to the BHU unit. Patient is a poor historian. Patient stated that he does not feel good. He is not able to elaborate more about why he does not feel good. Review of Systems Unable to [id number] ROS reviewed and are negative except as noted in HPI since patient is a poor historian Past Medical History Past Medical History: Hypertension History of Any Multi-Drug Resistant Organisms: None Reported Past Anesthesia/Blood Transfusion Reactions: No Reported Reaction Smoking Status: Never smoker - Past Family History Father Family Medical History: Unable to Obtain Medications and Allergies Home Medications Medication Instructions Recorded Confirmed Type Insulin Aspart [NovoLOG Flexpen] 15 units SQ AC-TID 05/09/22 05/09/22 History Insulin Aspart [NovoLOG Flexpen] See Protocol SQ DIRECTED 05/09/22 05/09/22 History Insulin Detemir [Levemir Flextouch 20 units SQ BID 05/09/22 05/09/22 History Pen] carvediloL 25 mg PO BID 05/09/22 05/09/22 History ARIPiprazole IM SYRINGE [Abilify 400 mg IM Q28D #0 05/16/22 05/09/22 Rx Maintena Syringe] ARIPiprazole [Abilify] 10 mg PO DAILY 15 Days tab 05/16/22 Rx FLUoxetine ORAL SOLN [PROzac ORAL 40 mg PO DAILY 30 Days ml 05/16/22 Rx SOLN] Mirtazapine [Remeron] 15 mg PO HS 30 Days tab 05/16/22 Rx Allergies Allergy/AdvReac Type Severity Reaction Status Date / Time No Known Allergies Allergy Verified 05/24/22 10:21 Physical Exam Osteopathic Statement: *. No significant issues noted on an osteopathic structural exam other than those noted in the History and Physical/Consult. Vitals: Vital Signs Temp Pulse Resp BP Pulse Ox 05/24/22 09:30 97.7 F 84 18 127/75 97 Intake and Output 05/24/22 05/24/22 05/24/22 06:59 14:59 22:59 Other: Weight 131.542 kg 88.5 kg General: [Alert and oriented, well nourished, no acute distress]. Eye: [No lid lag, normal conjunctiva]. HENT: [Normocephalic, clear tympanic membranes, normal hearing, moist oral mucosa, no scleral icterus, no sinus tenderness]. Neck: [Supple, non-tender, no carotid bruits, no JVD, no lymphadenopathy]. Lungs: [Clear to auscultation and percussion, non-labored respiration]. Heart: [Normal rate, regular rhythm, no murmur, gallop or edema]. Abdomen: [Soft, non-tender, non-distended, normal bowel sounds, no masses]. Musculoskeletal: [Rigidity of the upper and lower extremities, no tenderness or swelling]. Skin: [Skin is warm, dry and pink, no rashes or lesions]. Neurologic: CN II-XII intact]. Psychiatric: [Flat affect]. Cranial Nerve Examination - Cranial Nerves Cranial Nerve I- Olfactory: Intact Cranial Nerve II- Optic: Intact Cranial Nerve III- Oculomotor: Intact Cranial Nerve IV- Trochlear: Intact Cranial Nerve V- Trigeminal: Intact Cranial Nerve - Abducens: Intact Cranial Nerve VII- Facial: Intact Cranial Nerve VIII- Auditory: Intact Cranial Nerve IX- Glossopharyngeal: Intact Cranial Nerve X- Vagus: Intact Cranial Nerve XI- Accessory: Intact Cranial Nerve XII- Hypoglossal: Intact Assessment and Plan Assessment: Diabetes mellitus Patient was recently admitted to psych unit and his blood glucose was within normal limits and hemoglobin A1c was 6.9 We'll start patient on sliding scale insulin and adjust insulin as needed Please contact us if blood glucose more than 250 Hypertension Resume Coreg Schizophrenia with catatonic behavior Your psychiatry management Please do not hesitate to contact us for any medical questions
[2022-05-24 17:54] LABS: Glucose,Whole Blood 76 mg/dL (70-110)
[2022-05-24] MEDS: INSULIN ASPART (NovoLOG) 100 UNIT/ML VIAL SQ SCH ×2 (19:51→20:21)
[2022-05-24] MEDS: MIRTAZAPINE 15 MG TAB PO SCH (20:19)
[2022-05-24] MEDS: carvediloL 12.5 MG TAB PO SCH (20:20)
[2022-05-24 20:21] LABS: Glucose,Whole Blood 91 mg/dL (70-110)
[2022-05-24] MEDS ORDERED: MIRTAZAPINE 15 MG TAB PO SCH (21:00)
[2022-05-25 07:52] LABS: Glucose,Whole Blood 78 mg/dL (70-110)
[2022-05-25] MEDS: INSULIN ASPART (NovoLOG) 100 UNIT/ML VIAL SQ SCH ×4 (08:21→20:49)
[2022-05-25] MEDS: FLUoxetine HCL 20 MG CAP PO SCH ×4 (08:32→11:55)
[2022-05-25] MEDS: carvediloL 12.5 MG TAB PO SCH ×3 (08:32→18:40)
[2022-05-25] MEDS: ARIPiprazole 10 MG TAB PO SCH ×4 (08:32→11:56)
[2022-05-25] MEDS ORDERED: LORazepam 2 MG/ML INJ IM STA (10:47)
--- NOTE | 2022-05-25 11:13 | P.PN ---
Progress Note - Text Progress Note Date: 05/25/22 Interval History: Patient was seen resting in bed and was directable and agreeable to speak with junior copywriter in his room.. Currently, the patient refused his morning medications. He states this provider "I can't move." He is otherwise denying any suicidal or homicidal ideation today. He is not reporting any visual hallucinations however does endorse auditory hallucinations. He is unable to state exactly what he is hearing to this provider. The patient is minimal in conversation and has not eaten his breakfast. The patient is in agreement to take Ativan IM for possible catatonic symptoms. Mental Status Exam: General Appearance: Patient appears to be stated age is alert, directable, and attempts to cooperate. Behavior: Patient is calmly lying down in bed without any agitated behavior. Attempts to move the patient was met with resistance. The patient displays some rigidity in his upper and lower extremities. Speech: Patient's speech is nonspontaneous, monotone, low in volume. One-word replies. Mood/Affect: Mood is "I can't move." Affect is flat. Withdrawn. Suicidality/Homicidality: Patient denies having any suicidal or homicidal ideation intent or plan. Perceptions: Patient reports auditory hallucinations. He denies any visual hallucinations. Though content/process: There is no evidence of any delusional thought content and thought process is linear and goal-directed. Memory and concentration: AOX3, grossly intact for the purposes of this session Judgment and insight: Poor Vital Signs Temp 98.0 F 05/25/22 08:41 Pulse 79 05/25/22 08:41 Resp 20 05/25/22 08:41 BP 131/58 05/25/22 08:41 Pulse Ox 97 05/24/22 09:30 FiO2 Intake & Output 05/24/22 05/25/22 05/25/22 18:59 06:59 18:59 Weight 88.5 kg Laboratory Results - Last 24 Hours 05/24/22 05/24/22 05/25/22 17:52 20:19 07:50 POC Glucose (mg/dL) 76 91 78 POC Glu Communication Manager ID Yvan Castañeda, Janee Rojas Assessment Major depressive disorder, recurrent, severe, with psychotic features Rule out catatonia Plan: -Patient continues to meet criteria for inpatient psychiatric admission for symptom stabilization and safety. Patient has signed adult voluntary form and medication consent and was placed in patient's chart. -Medications: Abilify 10 mg daily for mood augmentation. Abilify maintena 400 mg IM was last administered on 05/10/2022. Prozac 40 mg daily for depression Continue Remeron 30 mg at bedtime for depression Ordered Ativan 2 mg IM for catatonia -When necessary Ativan and Haldol for agitation/aggression. -SW on board for discharge planning. Encouraged the patient to participate in milieu.
[2022-05-25 12:42] LABS: Glucose,Whole Blood 78 mg/dL (70-110)
[2022-05-25 17:38] LABS: Glucose,Whole Blood 113 mg/dL (70-110)
[2022-05-25 20:39] LABS: Glucose,Whole Blood 208 mg/dL (70-110)
[2022-05-25] MEDS: MIRTAZAPINE 15 MG TAB PO SCH (20:49)
[2022-05-26 07:58] LABS: Glucose,Whole Blood 116 mg/dL (70-110)
[2022-05-26] MEDS: INSULIN ASPART (NovoLOG) 100 UNIT/ML VIAL SQ SCH ×4 (08:35→20:51)
[2022-05-26] MEDS: FLUoxetine HCL 20 MG CAP PO SCH (09:11)
[2022-05-26] MEDS: carvediloL 12.5 MG TAB PO SCH ×2 (09:11→17:28)
[2022-05-26] MEDS: ARIPiprazole 10 MG TAB PO SCH (09:11)
--- NOTE | 2022-05-26 11:24 | P.PN ---
Progress Note - Text Progress Note Date: 05/26/22 Interval History: Patient was seen resting in bed and was directable and agreeable to speak with junior underwriter in his room. Patient continues to remain primarily isolative to his room however was noted by staff to be more spontaneous. He got up for meals and took his medications this morning. He denies any suicidal or homicidal ideation to this provider. He reports no auditory or visual hallucinations. He denies any paranoia or other delusions. He continues to lie down in bed and of concern, the patient has developed some skin integrity issues with his knees due to his knees resting on each other and him not moving them. Mental Status Exam: General Appearance: Patient appears to be stated age is alert, directable, and attempts to cooperate. Behavior: Patient is calmly lying down in bed without any agitated behavior. Eye contact is poor. Psychomotor retardation. Speech: Patient's speech is nonspontaneous, monotone, low in volume. One-word replies. Mood/Affect: Mood is "I'm ok." Affect is flat. Withdrawn. Suicidality/Homicidality: Patient denies having any suicidal or homicidal ideation intent or plan. Perceptions: Patien denies any auditory or visual hallucinations. Though content/process: There is no evidence of any delusional thought content and thought process is linear and goal-directed. Memory and concentration: AOX3, grossly intact for the purposes of this session Judgment and insight: Poor Vital Signs Temp 97.9 F 05/26/22 05:01 Pulse 86 05/26/22 05:01 Resp 18 05/26/22 05:01 BP 127/72 05/26/22 05:01 Pulse Ox 97 05/26/22 05:01 FiO2 Laboratory Results - Last 24 Hours 05/25/22 05/25/22 05/25/22 12:39 17:37 20:37 POC Glucose (mg/dL) 78 113 H 208 H POC Glu Web Ui Developer ID Chana Traore Shelly Hopkins, Jessica 05/26/22 07:55 POC Glucose (mg/dL) 116 H POC Glu Web Ui Developer ID Mary Lacey Assessment Major depressive disorder, recurrent, severe, with psychotic features Rule out catatonia Plan: -Patient continues to meet criteria for inpatient psychiatric admission for symptom stabilization and safety. Patient has signed adult voluntary form and medication consent and was placed in patient's chart. -Medications: Abilify 10 mg daily for mood augmentation. Abilify maintena 400 mg IM was last administered on 05/10/2022. Increase prozac to 60 mg daily for depression Continue Remeron 30 mg at bedtime for depression Ordered Ativan 1 mg TID for catatonic symptoms. -When necessary Ativan and Haldol for agitation/aggression. -SW on board for discharge planning. Encouraged the patient to participate in milieu.
[2022-05-26 12:30] LABS: Glucose,Whole Blood 120 mg/dL (70-110)
[2022-05-26 12:51] LABS: Glucose,Whole Blood 105 mg/dL (70-110)
[2022-05-26] MEDS: LORazepam 1 MG TAB PO SCH ×2 (15:23→20:51)
[2022-05-26 17:35] LABS: Glucose,Whole Blood 131 mg/dL (70-110)
[2022-05-26 20:31] LABS: Glucose,Whole Blood 153 mg/dL (70-110)
[2022-05-26] MEDS: MIRTAZAPINE 15 MG TAB PO SCH (20:51)
[2022-05-27] MEDS: INSULIN ASPART (NovoLOG) 100 UNIT/ML VIAL SQ SCH ×4 (09:28→20:19)
[2022-05-27] MEDS: carvediloL 12.5 MG TAB PO SCH ×2 (09:33→17:15)
[2022-05-27] MEDS: ARIPiprazole 10 MG TAB PO SCH (09:35)
[2022-05-27] MEDS: FLUoxetine HCL 20 MG CAP PO SCH (09:35)
[2022-05-27] MEDS: LORazepam 1 MG TAB PO SCH ×3 (09:35→20:48)
[2022-05-27 13:02] LABS: Glucose,Whole Blood 125 mg/dL (70-110)
--- NOTE | 2022-05-27 15:03 | P.PN ---
Progress Note - Text Progress Note Date: 05/27/22 Interval History: Patient was seen resting in bed and was directable and agreeable to speak with scientific technical writer in his room. Patient continues to remain primarily isolative to his room. He got up for meals and took his medications. He denies any suicidal or homicidal ideation to this provider. He reports no auditory or visual hallucinations. He denies any paranoia or other delusions. He denies side effects to medications and concerns in general. Mental Status Exam: General Appearance: Patient appears to be stated age is alert, directable, and attempts to cooperate. Behavior: Patient is calmly lying down in bed without any agitated behavior. Eye contact is improved. Psychomotor retardation. Speech: Patient's speech is nonspontaneous, monotone, low in volume. One-word replies. Mood/Affect: Mood is "I'm ok." Affect is flat. Withdrawn. Suicidality/Homicidality: Patient denies having any suicidal or homicidal ideation intent or plan. Perceptions: Patien denies any auditory or visual hallucinations. Though content/process: There is no evidence of any delusional thought content and thought process is linear and goal-directed. Memory and concentration: AOX3, grossly intact for the purposes of this session Judgment and insight: Poor AIMS = 0 Chandler-Darius Catatonia scale = 4 Assessment Major depressive disorder, recurrent, severe, with psychotic features Catatonia, acute Plan: -Patient continues to meet criteria for inpatient psychiatric admission for symptom stabilization and safety. Patient has signed adult voluntary form and medication consent and was placed in patient's chart. -Medications: Continue Abilify 10 mg daily for mood augmentation. Might lower if not responding to increased dose of Ativan. Abilify maintena 400 mg IM was last administered on 05/10/2022. Continue prozac to 60 mg daily for depression Continue Remeron 30 mg at bedtime for depression Increase Ativan to 2 mg TID for catatonic symptoms. -When necessary Ativan and Haldol for agitation/aggression. -SW on board for discharge planning. Encouraged the patient to participate in milieu.
[2022-05-27 17:18] LABS: Glucose,Whole Blood 108 mg/dL (70-110)
[2022-05-27 20:11] LABS: Glucose,Whole Blood 145 mg/dL (70-110)
[2022-05-27] MEDS: MIRTAZAPINE 15 MG TAB PO SCH (20:48)
[2022-05-28 08:15] LABS: Glucose,Whole Blood 81 mg/dL (70-110)
[2022-05-28] MEDS: INSULIN ASPART (NovoLOG) 100 UNIT/ML VIAL SQ SCH ×4 (08:28→20:42)
[2022-05-28] MEDS: FLUoxetine HCL 20 MG CAP PO SCH (09:47)
[2022-05-28] MEDS: ARIPiprazole 10 MG TAB PO SCH (09:47)
[2022-05-28] MEDS: carvediloL 12.5 MG TAB PO SCH ×2 (09:47→17:43)
[2022-05-28] MEDS: LORazepam 1 MG TAB PO SCH ×3 (09:48→20:49)
[2022-05-28 12:54] LABS: Glucose,Whole Blood 98 mg/dL (70-110)
--- NOTE | 2022-05-28 16:02 | P.PN ---
Progress Note - Text Progress Note Date: 05/28/22 Interval History: Patient was seen resting in bed and was directable and agreeable to speak with automobile service writer in his room. He states that he is doing "good ". Patient is more verbose than yesterday but noted to be stuttering. Patient continues to remain primarily isolative to his room. He got up for meals and took his medications. He denies any suicidal or homicidal ideation to this provider. He reports no auditory or visual hallucinations. He denies any paranoia or other delusions. He denies side effects to medications and denies having any other concerns. Mental Status Exam: General Appearance: Patient appears to be stated age is alert, directable, and attempts to cooperate. Behavior: Patient is calmly lying down in bed without any agitated behavior. Eye contact is improved. Psychomotor retardation. Speech: Patient's speech is nonspontaneous, monotone, low in volume, stuttering Mood/Affect: Mood is "I'm good." Affect is flat. Withdrawn. Suicidality/Homicidality: Patient denies having any suicidal or homicidal ideation intent or plan. Perceptions: Patien denies any auditory or visual hallucinations. Though content/process: There is no evidence of any delusional thought content and thought process is linear and goal-directed. Memory and concentration: AOX3, grossly intact for the purposes of this session Judgment and insight: Poor AIMS = 0 Chandler-Darius Catatonia scale = 3 Assessment Major depressive disorder, recurrent, severe, with psychotic features Catatonia, acute - improving Plan: -Patient continues to meet criteria for inpatient psychiatric admission for symptom stabilization and safety. Patient has signed adult voluntary form and me dication consent and was placed in patient's chart. -Medications: Decrease Abilify to 5 mg daily for mood augmentation due to catatonia. Abilify maintena 400 mg IM was last administered on 05/10/2022. Continue prozac to 60 mg daily for depression Continue Remeron 30 mg at bedtime for depression Continue Ativan 2 mg TID for catatonic symptoms. -When necessary Ativan and Haldol for agitation/aggression. -SW on board for discharge planning. Encouraged the patient to participate in milieu.
[2022-05-28 17:44] LABS: Glucose,Whole Blood 97 mg/dL (70-110)
[2022-05-28 20:27] LABS: Glucose,Whole Blood 122 mg/dL (70-110)
[2022-05-28] MEDS: MIRTAZAPINE 15 MG TAB PO SCH (20:49)
[2022-05-29 07:09] VITALS: PULSE 72; RESP 16; TEMP 97.6
[2022-05-29 07:58] LABS: Glucose,Whole Blood 103 mg/dL (70-110)
[2022-05-29] MEDS: INSULIN ASPART (NovoLOG) 100 UNIT/ML VIAL SQ SCH ×2 (08:44→13:24)
[2022-05-29] MEDS: FLUoxetine HCL 20 MG CAP PO SCH (08:54)
[2022-05-29] MEDS: carvediloL 12.5 MG TAB PO SCH ×2 (08:55→16:10)
[2022-05-29] MEDS: LORazepam 1 MG TAB PO SCH ×2 (08:55→16:10)
[2022-05-29] MEDS ORDERED: ARIPiprazole 5 MG TAB PO SCH (09:00)
[2022-05-29 09:02] VITALS: BP 110/59
--- NOTE | 2022-05-29 12:06 | P.DS ---
Providers Date of admission: 05/24/22 09:23 Expected date of discharge: 05/29/22 Attending physician: Jian Andres MD Consults: 05/24/22 03:33 Consult Physician Routine Consulting Provider: May Henry Consult Reason/Comments: For H & P for Medical Follow Up Do you want consulting provider notified?: Yes, Notify in am Primary care physician: Stated None - Discharge Diagnosis(es) (1) Major depressive disorder, recurrent, with catatonic features Current Visit: Yes Status: Acute Priority: High (2) Intellectual disability Current Visit: Yes Status: Chronic Priority: Medium Hospital Course: Admission HPI: Patient is a 36-year-old male who presented to our hospital from [place] under petition clinical certificate certification for increased apathy, rigidity, and catatonic behavior. Patient presented to the hospital on 05/24/2022, transferred from [facility] for increased apathy, rigidity, and catatonic behavior. The patient was assessed by [facility] on 05/23/22 and was recommended for psychiatric inpatient hospitalization. As for EPS nurse, the [facility] home was contacted and reported that the patient requested to return to the hospital a few days after being discharged from our unit on 05/16/2022.The patient was also reported to be treated at [facility] for catatonia. The patient presented with increased apathy and endorsed suicidal ideation and some bizarre delusional thoughts. He was subsequently admitted to our psychiatric unit. Upon evaluation on the unit, the patient is a limited historian. He is minimal in conversation but reports that he has been feeling depressed. He does not endorse any auditory or visual hallucinations. He reports no paranoia or other delusions to this provider. He does report low appetite and difficulty addressing his hygiene and grooming however attempts to illicit a more thorough response is met with one word answers. The patient is however agreeable to admission and medication adjustments. During his last admission, this provider contacted [facility] and they reported that the patient is highly functional at baseline. 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 Patient has a previous diagnosis of developmental disability and schizophrenia. The patient was only on a regimen of Zoloft and Klonopin prior to initiating treatment on abiowatonna clinictena. He received abilify maintena 400 mg IM on 05/10/2022. The patient was most recently admitted to our unit in April 2022 and was discharged 2 weeks prior to this admission. He was transitioned to prozac and remeron from zoloft. He is currently open with [facility]. No reported previous suicide attempts. Hospital course: Upon admission to the unit patient was initially presenting as withdrawn, with psychomotor slowing, and very poor hygiene and grooming. Patient was however directable and agreeable to commence treatment. Patient got along well with other patients on the unit and followed unit protocol. Patient was compliant with the medications and denied any side effects throughout hospital course. Patient was started on Abilify in order to augment his long-acting injectable medication Abilify maintena which was last administered on 05/10/2022. He was also started on his Prozac for depression and his Remeron was increased for better control of his depression. Initially, the patient was minimally responsive and reported an inability to move. Ativan was administered and the patient had a significant improvement in his ability to move. Over the course of the hospitalization, his medications were administered and gradually titrated, the patient displayed a significant improvement in regards to his target symptoms of depression. He became more spontaneous, had more energy, got out of his room and interacted with staff and peers more, and addressed his hygiene and grooming. On the day of discharge, the patient is not reporting any suicidal or homicidal ideation, intention, and/or plan. He is much more spontaneous in conversation. He is future and goal oriented with a desire to [facility] back [facility] in order to sleep better as he feels like he is not sleeping well in the hospital. He is not endorsing any auditory or visual hallucinations. He reports Firearms other weapons. The patient was counseled great length on the importance of medication adherence appropriate outpatient follow-up. The patient does not have significant history substance abuse however was counseled great length on abstaining from all substances including alcohol and marijuana. As the patient along met criteria for continued inpatient psychiatric hospital elevation, he was subsequently discharged. Mental status exam: General Appearance: Patient appears to be stated age is alert, pleasant, and cooperative. Patient is in no acute distress and has fair hygiene and grooming Behavior: Calm and lying down without any agitated behavior. Speech: Patient's speech is fluent and nonpressured. Mood/Affect: Patient reports their mood is "doing okay", affect is congruent and blunted. More range today. Suicidality/Homicidality: Patient denies any suicidal or homicidal ideation, intention, and/or plan. Perceptions: Patient denies any auditory or visual hallucinations. Though content/process: There is no evidence of any delusional thought content and thought process is linear and goal-directed. Patient is future oriented. Memory and concentration: AOX3, grossly intact for the purposes of this session. Can spell "WORLD" backwards correctly. Judgment and insight: Improved with guarded prognosis Impression: Major depressive disorder, recurrent, severe, with catatonia Intellectual disability Plan: -Continue with discharge today as patient has improved and stabilized psychiatrically and is not currently an imminent threat to himself and/or others. Patient will remain at chronically elevated risk due to the severity of his mental illness and his history of nonadherence with treatment -Continue medications: Abilify 5 mg by mouth daily for augmentation of his long-acting injectable which was administered last on 05/10/2022. Prozac 60 mg daily for depression Remeron 30 mg by mouth at bedtime for depression -Patient was counseled on the need for medication compliance and appropriate follow-up at mental health and also primary care for medical issues. Patient verbalized understanding and agreed. -Social work to arrange for and conduct family meeting to ensure safety upon discharge and answer any questions/concerns. Social work also to arrange for patients follow up appointments with [facility] for psychiatric care along with follow up with primary care provider. -Patient counseled on abstaining from recreational drugs and marijuana and alcohol. Was informed/educated on the adverse effects on their physical and mental health. Patient verbally agreed and understood. -Patient was instructed to return to the hospital or seek immediate medical care if their psychiatric or medical symptoms do worsen or reoccur. -Psychoeducation and supportive therapy provided to patient. Risks and benefits of pharmacological treatment versus the risks and benefits of nontreatment weight and discussed. Informed consent discussion held. Common side effects of psychotropics discussed such as, but not limited to headache, GI disturbance, sexual dysfunction, movement disorders, sedation, and orthostatic hypotension. Life threatening and blackbox warnings of prescribed medications also discussed. Potential risks of operating a vehicle or heavy machinery discussed with patient at length. Advised on importance of compliance and a reliable and resp onsible manner. Patient advised to review FDA consumer labeling of all medications prior to taking. Patient verbalized understanding of potential risks, and agrees with current treatment plan. Patient advised to medically contact physician/emergency personnel if any acute changes in condition occur. Vital Signs Temp 97.6 F 05/29/22 06:49 Pulse 72 05/29/22 09:02 Resp 16 05/29/22 06:49 BP 110/59 05/29/22 09:02 Pulse Ox 95 05/27/22 05:00 FiO2 Intake & Output 05/28/22 05/29/22 05/29/22 18:59 06:59 18:59 Other: # Voids 1 # Bowel Movements 1 Laboratory Results POC Glucose (mg/dL) 103 mg/dL (70-110) 05/29/22 07:56 POC Glu Dredge Pipe Installer ID Farzana Moran 05/29/22 07:56 Allergies Allergy/AdvReac Type Severity Reaction Status Date / Time No Known Allergies Allergy Verified 05/24/22 10:21 Patient Condition at Discharge: Stable Plan - Discharge Summary New Discharge Prescriptions: New ARIPiprazole [Abilify] 5 mg PO DAILY 30 Days tab FLUoxetine HCL [PROzac] 60 mg PO DAILY 30 Days cap Mirtazapine [Remeron] 30 mg PO HS 30 Days tab Continue ARIPiprazole IM SYRINGE [Abilify Maintena Syringe] 400 mg IM Q28D #0 carvediloL 25 mg PO BID Discontinued ARIPiprazole [Abilify] 10 mg PO DAILY 15 Days tab FLUoxetine ORAL SOLN [PROzac ORAL SOLN] 40 mg PO DAILY 30 Days ml Mirtazapine [Remeron] 15 mg PO HS 30 Days tab No Action INSULIN ASPART (NovoLOG) [NovoLOG (formulary)] See Protocol SQ ACHS Discharge Medication List carvediloL 25 mg PO BID 05/09/22 [History] ARIPiprazole IM SYRINGE [Abilify Maintena Syringe] 400 mg IM Q28D #0 05/16/22 [Rx] ARIPiprazole [Abilify] 5 mg PO DAILY 30 Days tab 05/29/22 [Rx] FLUoxetine HCL [PROzac] 60 mg PO DAILY 30 Days cap 05/29/22 [Rx] INSULIN ASPART (NovoLOG) [NovoLOG (formulary)] See Protocol SQ ACHS 05/29/22 [History] Mirtazapine [Remeron] 30 mg PO HS 30 Days tab 05/29/22 [Rx] Patient Instructions/Handouts: Depression (DC) Activity/Diet/Wound Care/Special Instructions: Avoid the use of street drugs and alcohol. Take all prescriptions as prescribed. When you are in need of refills on your medications, please contact your medical provider and/or outpatient psychiatrist to have this done. Please go to scheduled outpatient appointment for aftercare treatment. If symptoms return or become worse, call the crisis line at and/or go to the nearest emergency room for evaluation Discharge Disposition: HOME SELF-CARE
[2022-05-29 13:04] LABS: Glucose,Whole Blood 90 mg/dL (70-110)
== END 2022-05-29 17:25 | disposition home or self-care (01) | DRG 885 ==
LOC: 3MHU 09:23
PROVIDERS: ADMIT Psychiatry & Neurology Psychiatry; ATTEND Psychiatry & Neurology Psychiatry
DX: F33.3 Major depressive disorder, recurrent, severe with psychotic symptoms (principal); R45.851 Suicidal ideations; E11.9 Type 2 diabetes mellitus without complications; F06.1 Catatonic disorder due to known physiological condition; F20.9 Schizophrenia, unspecified; F79 Unspecified intellectual disabilities; I10 Essential (primary) hypertension; Z79.899 Other long term (current) drug therapy